=== PATIENT | female | born 1980 | race Caucasian/White ===

== ENCOUNTER 2016-05-26 07:25 | Emergency (ER) | payer OTHER ==
[~2016-05-26] VITALS: Ht 160 cm; Wt 79.3 kg
[~2016-05-26 07:25] MED LIST: FLOMAX0.4 MG PO; NEXIUM40 MG PO; NOHOMEMEDS; OMEPRAZOLE20 MG PO; PERCOCET 5/31 TABLET PO; PROAIR HFA8.5 GM IH; TORADOL10 MG PO; ZOFRAN ODT4 MG PO; ZYRTEC5 MG PO
[2016-05-26 08:00] LABS: MCH 30.9 PG (29.0-34.0); MCHC 33.4 G/DL (30.0-36.0); MCV 92.4 FL (83-99); MEAN PLAT.VOLUME 10.1 uM^3 (9.5-12.4); PLATELET COUNT 313 K/uL (156-360); RBC DIS.WIDTH-CV 13.1 % (11.8-14.6); RBC DIS.WIDTH-SD 44.5 % (39-53); RED BLOOD COUNT 4.76 M/uL (3.80-5.20); WHITE BLOOD COUNT 8.8 K/uL (4.1-10.2)
[2016-05-26 08:18] LABS: ANION GAP 8 MEQ/L (2-14); CHLORIDE 104 MEQ/L (99-109); POTASSIUM 4.3 MEQ/L (3.7-5.4); SAMPLE HEMOLYSIS CHECK 0; SAMPLE ICTERIC CHECK 0; SAMPLE LIPEMIA CHECK 0; SODIUM 136 MEQ/L (136-147); TOTAL BILIRUBIN 0.4 MG/DL (0.0-1.0)
[2016-05-26 08:24] LABS: ALKALINE PHOSPHATASE 86 IU/L (3-129); GFR ESTIMATE (CALCULATED) > 59 mL/min/; GLUCOSE 91 mg/dL (70-99); UREA NITROGEN (BUN) 20 mg/dL (9-23)
[2016-05-26 08:25] LABS: TROP-I INTERPRETATION NEGATIVE; TROPONIN-I 0.01 ng/mL (0.0-0.30)
[2016-05-26 08:26] LABS: QUANTITATIVE HCG < 4.0 MIU/ML
[2016-05-26] MEDS ORDERED: PROVENTIL,2.5 MG/3 M IH (09:05)
[2016-05-26] MEDS ORDERED: MOTRIN600 MG PO (09:05)
[2016-05-26] MEDS ORDERED: PREDNISONE20 MG PO (09:05)
[2016-05-26 09:53] LABS: ADD MIUA? YES; BILIRUBIN NEGATIVE; BLOOD SMALL; COLOR STRAW ((YELLOW)); GLUCOSE (STRIP) NEGATIVE; KETONES NEGATIVE; LEUKOCYTES NEGATIVE; NITRITE NEGATIVE; PROTEIN (STRIP) NEGATIVE; SPECIFIC GRAVITY 1.014 (1.000-1.030); UROBILINOGEN 0.2 MG/DL (0.2-1.0)
[2016-05-26 10:05] LABS: RED BLOOD CELLS 0-5 /HPF (0-5)
[2016-05-26 10:06] LABS: BACTERIA RARE /HPF; EPITHELIAL CELLS RARE /HPF; MUCUS TRACE /LPF; WHITE BLOOD CELLS 0-5 /HPF (0-5)
[2016-05-26 10:11] LABS: TROP-I INTERPRETATION NEGATIVE; TROPONIN-I < 0.01 ng/mL (0.0-0.30)
[2016-05-26 11:15] VITALS: BP 135/97
== END 2016-05-26 11:24 | disposition home or self-care (01) ==
LOC: EME 07:25
PROVIDERS: Nurse Practitioner Family
DX: M94.0 Chondrocostal junction syndrome [Tietze] (principal); R11.0 Nausea; R05 Cough; J45.909 Unspecified asthma, uncomplicated
CPT/HCPCS: 71020; 80053; 81003; 84484; 84702; 85027; 93005; 94640; 99281; 99285